=== PATIENT | female | born 1955 | race Caucasian/White ===

== ENCOUNTER → 2018-03-27 | Outpatient (CLI) | payer OTHER ==
[2018-03-27 15:28] VITALS: BP 141/66; PULSE 83; RESP 18; TEMP 97.2; BMI 22.3
--- NOTE | 2018-03-27 16:17 | P.HPOB ---
History of Present Illness H&P Date: 03/27/18 Chief Complaint: The patient is here for her routine gynecologic exam and mammogram. This is a 62-year-old G0 with an LMP of approximately 2003. The patient is here to establish with this office. She states that it has been about 5 years since her last pelvic exam. She is without gynecologic complaints and denies any postmenopausal bleeding. Review of Systems The patient's weight has been stable over the last year. She denies respiratory , cardiac, or G.I. problems. Past Medical History Past Medical History: Eye Disorder, Hyperlipidemia, Seizure Disorder Additional Past Medical History / Comment(s): EPILEPSY-LAST SEIZURE APPROX 30 YRS AGO, GLAUCOMA. History of Any Multi-Drug Resistant Organisms: None Reported Past Surgical History: Breast Surgery (Left breast biopsy) Additional Past Surgical History / Comment(s): COLONOSCOPY 2013 (2nd). Past Anesthesia/Blood Transfusion Reactions: Motion Sickness Additional Past Anesthesia/Blood Transfusion Reaction / Comment(s): HAS NEVER HAD GENERAL ANESTHESIA Past Psychological History: No Psychological Hx Reported Smoking Status: Never smoker Past Alcohol Use History: Rare (5 per year) Past Drug Use History: None Reported Additional History: She is single and has never been sexually active. 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 - Past Family History Mother Family Medical History: Hypertension, Myocardial Infarction ([place]) Additional Family Medical History / Comment(s): Kasey had breast cancer. Father Additional Family Medical History / Comment(s): Hepatitis C Medications and Allergies Home Medications Medication Instructions Recorded Confirmed Type Atorvastatin [Lipitor] 20 mg PO HS 03/24/14 03/26/14 History Fresh Coat Drops 1 drop BOTH EYES TID 03/24/14 03/26/14 History carBAMazepine [TEGretol] 100 mg PO DAILY 03/24/14 03/26/14 History levETIRAcetam [Keppra] 750 mg PO Q12HR 03/27/18 03/27/18 History Allergies Allergy/AdvReac Type Severity Reaction Status Date / Time No Known Allergies Allergy Verified 03/24/14 09:12 Exam Vital Signs Temp Pulse Resp BP 03/27/18 15:10 97.2 F L 83 18 141/66 Intake and Output 03/27/18 03/27/18 03/27/18 06:59 14:59 22:59 Other: Weight 55.338 kg Height 5'2", BMI 22.3. This is a well-developed well-nourished white female who is alert and oriented times 3 in no acute distress. HEENT: Within normal limits. NECK: Supple without mass or thyromegaly. CHEST AND LUNGS: Clear to auscultation. HEART: Regular rate and rhythm. BREASTS: Are without mass or discharge. AXILLARY EXAM: Negative for adenopathy. BACK: Negative for CVA tenderness. ABDOMEN: Soft, nontender, without palpable masses. PELVIC EXAM: Normal external genitalia with mild to moderate atrophy. The introitus is virginal. Cervix and vagina appear normal with mild to moderate atrophy. There is no unusual discharge. There is no evidence of prolapse. The uterus is midposition, nongravid size and nontender. There are no palpable adnexal masses or tenderness. RECTAL EXAM: rectovaginal exam is negative for mass or tenderness and is negative for occult blood. EXTREMITIES: Nontender. IMPRESSION: 1. 62-year-old menopausal virginal female with normal gynecologic exam. 2. Mildly elevated blood pressure. 3. History of osteopenia per the patient. PLAN: 1. Pap smear was performed. 2. Self breast awareness was discussed. 3. Screening mammogram will be done today. 4. Osteoporosis prevention was discussed. I have recommended repeating bone density testing since it has probably been more than 3 years since her last one. She will ask her primary care physician if one was done more recent than 3 years. 5. I have recommended that she check her own blood pressure on a regular basis and follow-up with Dr. Brar for blood pressure elevations. 6. She will return in one year.
--- NOTE | 2018-03-29 14:30 | MM ---
Reason for exam: screening (asymptomatic). History: Patient is postmenopausal and is nulliparous. MG Screening Mammo w CAD Bilateral CC and MLO view(s) were taken. The breast tissue is heterogeneously dense. This may lower the sensitivity of mammography. Focal asymmetry right anterior MLO new. Finding is new when compared to prior images 02/06/17 and . ASSESSMENT: Incomplete: need additional imaging evaluation, BI-RAD 0 RECOMMENDATION: Special view mammogram of the right breast.
== END | disposition home or self-care (01) ==
LOC: WWCWWP 14:36
PROVIDERS: ATTEND Obstetrics & Gynecology
DX: Z12.31 Encounter for screening mammogram for malignant neoplasm of breast (principal)
CPT/HCPCS: 77067

== ENCOUNTER 2023-12-01 09:54 | Observation (INO) | payer BC, OTHER ==
[2023-12-01 10:33] LABS: HCT 43.6 % (34.0-46.0); HGB 14.2 gm/dL (11.4-16.0); MCH 31.2 pg (25.0-35.0); MCHC 32.6 g/dL (31.0-37.0); MCV 95.7 fL (80.0-100.0); Mean Platelet Volume 7.8; Platelet Count 166 k/uL (150-450); RBC 4.56 m/uL (3.80-5.40); RDW 12.1 % (11.5-15.5)
[2023-12-01] MEDS: SODIUM CHLORIDE 0.9% 500 ML 500 ML IV STA (10:34)
[2023-12-01] MEDS: DILTIAZEM DRIP BOLUS FROM BAG 1 MG SOLN IV ONE (10:39)
[2023-12-01] MEDS: DILTIAZEM 125 MG in SODIUM CHLORIDE 0.9% 100 ML IV SCH (10:42)
--- NOTE | 2023-12-01 10:42 | XR ---
EXAMINATION TYPE: XR chest 2V DATE OF EXAM: 12/01/2023 10:35 AM CLINICAL INDICATION:Female, 68 years old with history of dysrhythmia; PHH COMPARISON: None TECHNIQUE: XR chest 2V Frontal and lateral views of the chest. FINDINGS: Lungs/Pleura: There is no evidence of pleural effusion, focal consolidation, or pneumothorax. Pulmonary vascularity: Unremarkable. Heart/mediastinum: Cardiomediastinal silhouette is unremarkable. Musculoskeletal: No acute osseous pathology. IMPRESSION: No acute cardiopulmonary disease/process.
[2023-12-01 10:49] LABS: ALT 26 U/L (4-34); AST 32 U/L (14-36); African American GFR (CKD) >90 (>60 ml/min/1.73 sqM); Albumin 3.9 g/dL (3.5-5.0); Alkaline Phosphatase 81 U/L (38-126); Anion Gap 8 mmol/L; Blood Urea Nitrogen 16 mg/dL (7-17); Calcium 8.3 mg/dL (8.4-10.2); Carbon Dioxide 23 mmol/L (22-30); Chloride 105 mmol/L (98-107); Glucose 91 mg/dL (74-99); Non-African American GFR(CKD) >90 (>60 ml/min/1.73 sqM); Potassium 3.7 mmol/L (3.5-5.1); Sodium 136 mmol/L (137-145); Total Bilirubin 0.4 mg/dL (0.2-1.3); Total Protein 6.6 g/dL (6.3-8.2)
--- NOTE | 2023-12-01 10:52 | ED ---
General Adult HPI - General Chief complaint: Arrhythmia/Palpitations Stated complaint: Afib Time Seen by Provider: 12/01/23 10:04 Source: patient, EMS, RN notes reviewed, old records reviewed Mode of arrival: EMS Limitations: no limitations - History of Present Illness Initial comments: 68-year-old female presenting from primary care office with new onset atrial fibrillation with RVR. Patient has no prior history. She has no chest pain. She has mild exertional dyspnea. She states she had a low-grade fever, headache, diarrhea earlier this week. Those symptoms have improved. She feels fine at the time my evaluation. She was noted to have a rapid A-fib in the 1 50-1 70 range during transport. - Related Data Home Medications Medication Instructions Recorded Confirmed Atorvastatin [Lipitor] 20 mg PO HS 03/24/14 12/01/23 carBAMazepine [TEGretol] 200 mg PO TID 03/24/14 12/01/23 Latanoprost [Latanoprost 0.005%] 1 drop LEFT EYE HS 12/01/23 12/01/23 Multivitamins, Thera [Multivitamin 1 tab PO DAILY 12/01/23 12/01/23 (formulary)] levETIRAcetam [Keppra] 250 mg PO Q12HR 12/01/23 12/01/23 levETIRAcetam [Keppra] 500 mg PO Q12HR 12/01/23 12/01/23 Allergies Allergy/AdvReac Type Severity Reaction Status Date / Time No Known Allergies Allergy Verified 12/01/23 11:25 Review of Systems ROS Statement: Those systems with pertinent positive or pertinent negative responses have been documented in the HPI. ROS Other: All systems not noted in ROS Statement are negative. Past Medical History Past Medical History: Eye Disorder, Hyperlipidemia, Seizure Disorder Additional Past Medical History / Comment(s): EPILEPSY-LAST SEIZURE APPROX 30 YRS AGO, GLAUCOMA. History of Any Multi-Drug Resistant Organisms: None Reported Past Surgical History: Breast Surgery Additional Past Surgical History / Comment(s): COLONOSCOPY 2014 (2nd). Past Anesthesia/Blood Transfusion Reactions: Motion Sickness Additional Past Anesthesia/Blood Transfusion Reaction / Comment(s): HAS NEVER HAD GENERAL ANESTHESIA Past Psychological History: No Psychological Hx Reported Smoking Status: Never smoker Past Alcohol Use History: Rare Past Drug Use History: None Reported - Past Family History Mother Family Medical History: Hypertension, Myocardial Infarction ([place]) Additional Family Medical History / Comment(s): Kasey had breast cancer. Father Family Medical History: No Reported History Additional Family Medical History / Comment(s): Hepatitis C General Exam Limitations: no limitations General appearance: alert, in no apparent distress Head exam: Present: atraumatic, normocephalic Eye exam: Present: normal appearance, PERRL ENT exam: Present: normal exam Neck exam: Present: normal inspection. Absent: tenderness, meningismus Respiratory exam: Present: normal lung sounds bilaterally. Absent: respiratory distress, wheezes Cardiovascular Exam: Present: tachycardia, irregular rhythm GI/Abdominal exam: Present: soft. Absent: distended, tenderness, guarding Neurological exam: Present: alert, oriented X3, CN II-XII intact. Absent: motor sensory deficit Psychiatric exam: Present: normal affect, normal mood Skin exam: Present: warm, dry, intact. Absent: cyanosis, diaphoretic Course Vital Signs 12/01/23 12/01/23 12/01/23 10:00 10:01 10:08 Temperature 97.0 F L Pulse Rate 163 H 156 H Pulse Rate [ 156 H Order Entry Administrator ] Respiratory 18 18 Rate Blood Pressure 123/93 123/93 O2 Sat by Pulse 100 96 Oximetry 12/01/23 12/01/23 12/01/23 11:00 12:00 12:51 Temperature Pulse Rate 156 H 102 H Pulse Rate [ 97 Order Entry Administrator ] Respiratory 18 18 Rate Blood Pressure 107/63 129/71 O2 Sat by Pulse 100 100 Oximetry Medical Decision Making - Medical Decision Making Was pt. sent in by a medical professional or institution (, PA, M[employer], urgent care, hospital, or correction...) When possible be specific @ -No Did you speak to anyone other than the patient for history (EMS, parent, family, police, friend...)? What history was obtained from this source @ -No Did you review nursing and triage notes (agree or disagree)? Why? @ -I reviewed and agree with nursing and triage notes Were old charts reviewed (outside hosp., previous admission, EMS record, old EKG, old radiological studies, urgent care reports/EKG's, correction records)? Report findings @ -No old charts were reviewed Differential Diagnosis MDM differential palpitation EKG interpreted by me (3pts min.). @EKG atrial fibrillation with RVR rate of 147 QRS duration 79, QTc [address] segment elevation, ST segment depression in the lateral precordial leads. Repeat EKG at 1249, sinus rhythm rate of 95, AK interval 123, QRS duration 82, QTc [address] segment changes. X-rays interpreted by me (1pt min.). @Negative for acute cardiopulmonary findings. CT interpreted by me (1pt min.). @ -None done U/S interpreted by me (1pt. min.). @ -None done What testing was considered but not performed or refused? (CT, X-rays, U/S, labs)? Why? @ -None What meds were considered but not given or refused? Why? @ -None Did you discuss the management of the patient with other professionals (professionals i.e. , PA, M[employer]ER, lab, RT, psych nurse, social insurance specialist, support manager, teacher, amphibious operations officer, clinical case manager)? Give summary @ -[EMH Was smoking cessation discussed for >3mins.? @ -No Was critical care preformed (if so, how long)? @ -yes 35 min Were there social determinants of health that impacted care today? How? (Homeles sness, low income, unemployed, alcoholism, drug addiction, transportation, low edu. Level, literacy, decrease access to med. care, nursing home, rehab)? @ -No Was there de-escalation of care discussed even if they declined (Discuss DNR or withdrawal of care, Hospice)? DNR status @ -No What co-morbidities impacted this encounter? (DM, HTN, Smoking, COPD, CAD, Cancer, CVA, ARF, Chemo, Hep., AIDS, mental health diagnosis, sleep apnea, morbid obesity)? @ -None Was patient admitted / discharged? Hospital course, mention meds given and route, prescriptions, significant lab abnormalities, going to OR and other pertinent info. @ 68-year-old female with new onset A-fib with RVR. Normal labs. Started on C ardiezem and Heparin. Patient admitted with new onset atrial fibrillation with RVR. Chest x-ray is clear. Laboratory testing unremarkable with the exception of testing positive for coronavirus. Patient admitted to internal medicine with cardiology on consult. Undiagnosed new problem with uncertain prognosis? @ -No Drug Therapy requiring intensive monitoring for toxicity (Heparin, Nitro, Insul in, Cardizem)? @ -No Were any procedures done? @ -No Diagnosis/symptom? @ -New onset A-fib Acute, or Chronic, or Acute on Chronic? @ acute Uncomplicated (without systemic symptoms) or Complicated (systemic symptoms)? @ -Default Side effects of treatment? @ -No Exacerbation, Progression, or Severe Exacerbation? @ -No Poses a threat to life or bodily function? How? (Chest pain, USA, MS, pneumonia, PE, COPD, DKA, ARF, appy, cholecystitis, CVA, Diverticulitis, Homicidal, Suicidal, threat to staff... and all critical care pts) @ -Yes, arrhythmia - Lab Data Result diagrams: 12/01/23 10:10 12/01/23 10:10 Lab Results 12/01/23 12/01/23 12/01/23 Range/Units 10:10 10:10 10:10 WBC 4.0 (3.8-10.6) k/uL RBC 4.56 (3.80-5.40) m/uL Hgb 14.2 (11.4-16.0) gm/dL Hct 43.6 (34.0-46.0) % MCV 95.7 (80.0-100.0) fL MCH 31.2 (25.0-35.0) pg MCHC 32.6 (31.0-37.0) g/dL RDW 12.1 (11.5-15.5) % Plt Count 166 (150-450) k/uL MPV 7.8 Neutrophils % (Manual) 58 % Band Neuts % (Manual) 1 % Lymphocytes % (Manual) 26 % Monocytes % (Manual) 12 % Eosinophils % (Manual) 2 % Basophils % (Manual) 1 % Neutrophils # (Manual) 2.30 (1.3-7.7) k/uL Lymphocytes # (Manual) 1.04 (1.0-4.8) k/uL Monocytes # (Manual) 0.48 (0-1.0) k/uL Eosinophils # (Manual) 0.08 (0-0.7) k/uL Basophils # (Manual) 0.04 (0-0.2) k/uL Nucleated RBCs 0 (0-0) /100 WBC Manual Slide Review Performed PT 11.0 (10.0-12.5) sec INR 1.0 (<1.2) APTT 23.9 (22.0-30.0) sec Sodium 136 L (137-145) mmol/L Potassium 3.7 (3.5-5.1) mmol/L Chloride 105 (98-107) mmol/L Carbon Dioxide 23 (22-30) mmol/L Anion Gap 8 mmol/L BUN 16 (7-17) mg/dL Creatinine 0.50 L (0.52-1.04) mg/dL Est GFR (CKD-EPI)AfAm >90 (>60 ml/min/1.73 sqM) Est GFR (CKD-EPI)NonAf >90 (>60 ml/min/1.73 sqM) Glucose 91 (74-99) mg/dL Calcium 8.3 L (8.4-10.2) mg/dL Magnesium 2.0 (1.6-2.3) mg/dL Total Bilirubin 0.4 (0.2-1.3) mg/dL AST 32 (14-36) U/L ALT 26 (4-34) U/L Alkaline Phosphatase 81 (38-126) U/L Troponin I (0.000-0.034) ng/mL Total Protein 6.6 (6.3-8.2) g/dL Albumin 3.9 (3.5-5.0) g/dL TSH 1.370 (0.465-4.680) mIU/L Influenza Type A (PCR) (Not Detectd) Influenza Type B (PCR) (Not Detectd) RSV (PCR) (Not Detectd) SARS-CoV-2 (PCR) (Not Detectd) 12/01/23 12/01/23 Range/Units 10:10 10:10 WBC (3.8-10.6) k/uL RBC (3.80-5.40) m/uL Hgb (11.4-16.0) gm/dL Hct (34.0-46.0) % MCV (80.0-100.0) fL MCH (25.0-35.0) pg MCHC (31.0-37.0) g/dL RDW (11.5-15.5) % Plt Count (150-450) k/uL MPV Neutrophils % (Manual) % Band Neuts % (Manual) % Lymphocytes % (Manual) % Monocytes % (Manual) % Eosinophils % (Manual) % Basophils % (Manual) % Neutrophils # (Manual) (1.3-7.7) k/uL Lymphocytes # (Manual) (1.0-4.8) k/uL Monocytes # (Manual) (0-1.0) k/uL Eosinophils # (Manual) (0-0.7) k/uL Basophils # (Manual) (0-0.2) k/uL Nucleated RBCs (0-0) /100 WBC Manual Slide Review PT (10.0-12.5) sec INR (<1.2) APTT (22.0-30.0) sec Sodium (137-145) mmol/L Potassium (3.5-5.1) mmol/L Chloride (98-107) mmol/L Carbon Dioxide (22-30) mmol/L Anion Gap mmol/L BUN (7-17) mg/dL Creatinine (0.52-1.04) mg/dL Est GFR (CKD-EPI)AfAm (>60 ml/min/1.73 sqM) Est GFR (CKD-EPI)NonAf (>60 ml/min/1.73 sqM) Glucose (74-99) mg/dL Calcium (8.4-10.2) mg/dL Magnesium (1.6-2.3) mg/dL Total Bilirubin (0.2-1.3) mg/dL AST (14-36) U/L ALT (4-34) U/L Alkaline Phosphatase (38-126) U/L Troponin I <0.012 (0.000-0.034) ng/mL Total Protein (6.3-8.2) g/dL Albumin (3.5-5.0) g/dL TSH (0.465-4.680) mIU/L Influenza Type A (PCR) Not Detected (Not Detectd) Influenza Type B (PCR) Not Detected (Not Detectd) RSV (PCR) Not Detected (Not Detectd) SARS-CoV-2 (PCR) Detected A (Not Detectd) Critical Care Time Critical Care Time: Yes Total Critical Care Time: 35 Disposition Clinical Impression: Atrial fibrillation, COVID-19 Disposition: ADMITTED IP TO THIS [facility] Condition: Stable Is patient prescribed a controlled substance at d/c from ED?: No Time of Disposition: 12:37
[2023-12-01 10:53] LABS: Partial Thromboplastin Time 23.9 sec (22.0-30.0)
[2023-12-01] MEDS ORDERED: HEPARIN SODIUM 1,000 UN/ML (10ML VL) IV PRN (11:32)
[2023-12-01 11:41] LABS: Band Neutrophils % 1 %; Basophils # (M) 0.04 k/uL (0-0.2); Eosinophils # (M) 0.08 k/uL (0-0.7); Lymphocytes # (M) 1.04 k/uL (1.0-4.8); Monocytes # (M) 0.48 k/uL (0-1.0); Neutrophils % (M) 58 %; Nucleated Red Blood Cells 0 /100 WBC (0-0); Total Cells Counted 100
[2023-12-01] MEDS: HEPARIN SOD,PORK IN 0.45% NACL 25,000 UNIT in 0.45% NACL 1 250ML.BAG IV SCH (12:09)
[2023-12-01] MEDS: HEPARIN SODIUM 1,000 UN/ML (10ML VL) IV ONE (12:10)
[2023-12-01] MEDS ORDERED: NALOXONE 0.4 MG/ML 1 ML VIAL IV PRN (12:29)
[2023-12-01] MEDS ORDERED: ACETAMINOPHEN TAB 325 MG TAB PO PRN (12:29)
[2023-12-01] MEDS ORDERED: ONDANSETRON 4 MG/2 ML VIAL IVP PRN (15:22)
[2023-12-01] MEDS ORDERED: traMADol 50 MG TAB PO PRN (15:22)
--- NOTE | 2023-12-01 15:28 | P.HPIM ---
History of Present Illness H&P Date: 12/01/23 Chief Complaint: shortness of breath * 68-year-old lady with past medical history significant for hyperlipidemia, seizure disorder,presented to the emergency department with complains of new onset atrial fibrillation, patient initially presented with shortness of breath. Patient also had low-grade fever headache and had diarrhea for a few days. * workup initiated in ER included an EKG which showed atrial fibrillation heart rate of 156. Patient remained on room air * blood work obtained in ER included normal CBC including WBC hemoglobin and platelet count. INR of 1 * Serum chemistry showed sodium 136 fashion 3.7B UN 16 creatinine 0.5 magnesium of 2 * Patient was tested negative for influenza, positive for Covid REVIEW OF SYSTEMS: fever, headache, diarrhea CONSTITUTIONAL: No fever, no malaise, no fatigue. HEENT: No recent visual problems or hearing problems. Denied any sore throat. CARDIOVASCULAR: No chest pain, orthopnea, PND, no palpitations, no syncope. PULMONARY: No shortness of breath, no cough, no hemoptysis. GASTROINTESTINAL: fever, headache, diarrhea NEUROLOGICAL: No headaches, no weakness, no numbness. HEMATOLOGICAL: Denies any bleeding or petechiae. GENITOURINARY: Denies any burning micturition, frequency, or urgency. MUSCULOSKELETAL/RHEUMATOLOGICAL: Denies any joint pain, swelling, or any muscle pain. ENDOCRINE: Denies any polyuria or polydipsia. PHYSICAL EXAMINATION: GENERAL: The patient is alert and oriented x3, not in any acute distress. Well developed, well nourished. HEENT: Pupils are round and equally reacting to light. EOMI Normocephalic, atraumatic. No pharyngeal erythema. No thyromegaly. CARDIOVASCULAR: S1 and S2 present.tachycardia noted irregular rhythm PULMONARY: Chest is clear to auscultation, no wheezing or crackles. ABDOMEN: Soft, nontender, nondistended, normoactive bowel sounds. No palpable organomegaly. MUSCULOSKELETAL: No joint swelling or deformity. EXTREMITIES: No cyanosis, clubbing, or pedal edema. NEUROLOGICAL: Gross neurological examination did not reveal any focal deficits. Assessment and plan * New onset atrial fibrillation with rapid monitor is on * Diagnosis of Covid 19 incidental finding patient is on room air * Seizure disorder * Acute hyponatremia * Hyperlipidemia * In regards to atrial fibrillation, patient started on IV heparin, patient started on Cardizem drip, cardiology consulted, TSH is reviewed * in regards to incidental finding of Covid 19 continue to monitor for desaturation * In regards to seizure disorder continue home regimen including Keppra and Tegretol * In regards to hyponatremia follow-up on basic metabolic panel * In regards to dyslipidemia continue Lipitor * CODE STATUS full code Past Medical History Past Medical History: Eye Disorder, Hyperlipidemia, Seizure Disorder Additional Past Medical History / Comment(s): EPILEPSY-LAST SEIZURE APPROX 30 YRS AGO, GLAUCOMA. History of Any Multi-Drug Resistant Organisms: None Reported Past Surgical History: Breast Surgery Additional Past Surgical History / Comment(s): COLONOSCOPY 2013 (2nd). Past Anesthesia/Blood Transfusion Reactions: Motion Sickness Additional Past Anesthesia/Blood Transfusion Reaction / Comment(s): HAS NEVER HAD GENERAL ANESTHESIA Past Psychological History: No Psychological Hx Reported Smoking Status: Never smoker Past Alcohol Use History: Rare Past Drug Use History: None Reported - Past Family History Mother Family Medical History: Hypertension, Myocardial Infarction ([place]) Additional Family Medical History / Comment(s): Kasey had breast cancer. Father Family Medical History: No Reported History Additional Family Medical History / Comment(s): Hepatitis C Medications and Allergies Home Medications Medication Instructions Recorded Confirmed Type Atorvastatin [Lipitor] 20 mg PO HS 03/24/14 12/01/23 History carBAMazepine [TEGretol] 200 mg PO TID 03/24/14 12/01/23 History Latanoprost [Latanoprost 0.005%] 1 drop LEFT EYE HS 12/01/23 12/01/23 History Multivitamins, Thera [Multivitamin 1 tab PO DAILY 12/01/23 12/01/23 History (formulary)] levETIRAcetam [Keppra] 250 mg PO Q12HR 12/01/23 12/01/23 History levETIRAcetam [Keppra] 500 mg PO Q12HR 12/01/23 12/01/23 History Allergies Allergy/AdvReac Type Severity Reaction Status Date / Time No Known Allergies Allergy Verified 12/01/23 11:25 Physical Exam Vitals: Vital Signs Temp Pulse Pulse Resp BP Pulse Ox 12/01/23 12:51 97 12/01/23 12:00 102 H 18 129/71 100 12/01/23 11:00 156 H 18 107/63 100 12/01/23 10:08 156 H 12/01/23 10:01 97.0 F L 156 H 18 123/93 96 12/01/23 10:00 163 H 18 123/93 100 Intake and Output 12/01/23 12/01/23 12/01/23 06:59 14:59 22:59 Intake Total 13.0 Balance 13.0 Intake: Intake, IV Titration 13.0 Amount Diltiazem 125 mg In 13.0 Sodium Chloride 0.9% 100 ml @ 5 MG/HR 5 mls/hr IV .Q24H [facility] Rx#:[id number] Other: Weight 53.977 kg Results CBC & Chem 7: 12/01/23 10:10 12/01/23 10:10 Labs: Abnormal Lab Results - Last 24 Hours (Table) 12/01/23 12/01/23 Range/Units 10:10 10:10 Sodium 136 L (137-145) mmol/L Creatinine 0.50 L (0.52-1.04) mg/dL Calcium 8.3 L (8.4-10.2) mg/dL SARS-CoV-2 (PCR) Detected A (Not Detectd)
[2023-12-01] MEDS: MULTIVITAMINS, THERA 1 EACH TAB PO SCH (15:48)
[2023-12-01] MEDS: SODIUM CHLORIDE 0.9% 1,000 ML IV SCH (15:50)
[2023-12-01] MEDS: carBAMazepine 200 MG TAB PO SCH (15:53)
[2023-12-01] MEDS: levETIRAcetam 500 MG TAB PO SCH (23:02)
[2023-12-01] MEDS: ATORVASTATIN 20 MG TAB PO SCH (23:02)
[2023-12-01] MEDS: LATANOPROST 0.005% OPHTH DROPS 2.5 ML BTL LEFT EYE SCH (23:02)
[2023-12-02] MEDS: levETIRAcetam 250 MG TAB PO SCH (00:13)
[2023-12-02 06:51] LABS: INR 1.4 (<1.2); Prothrombin Time 14.4 sec (10.0-12.5)
[2023-12-02 07:05] LABS: Basophils % (A) 1 %; Eosinophils # (A) 0.1 k/uL (0-0.7); Eosinophils % (A) 4 %; HCT 38.3 % (34.0-46.0); HGB 12.5 gm/dL (11.4-16.0); Lymphocytes # (A) 1.1 k/uL (1.0-4.8); Lymphocytes % (A) 35 %; MCH 31.3 pg (25.0-35.0); MCHC 32.7 g/dL (31.0-37.0); MCV 95.7 fL (80.0-100.0); Mean Platelet Volume 8.1; Monocytes # (A) 0.4 k/uL (0-1.0); Monocytes % (A) 12 %; Neutrophils # (A) 1.4 k/uL (1.3-7.7); Neutrophils % (A) 44 %; Platelet Count 161 k/uL (150-450); RDW 12.3 % (11.5-15.5); WBC 3.2 k/uL (3.8-10.6)
[2023-12-02 07:50] LABS: African American GFR (CKD) >90 (>60 ml/min/1.73 sqM); Anion Gap 6 mmol/L; Blood Urea Nitrogen 12 mg/dL (7-17); C Reactive Protein 1.5 mg/dL (<1.0); Calcium 7.6 mg/dL (8.4-10.2); Carbon Dioxide 21 mmol/L (22-30); Chloride 112 mmol/L (98-107); Glucose 87 mg/dL (74-99); Magnesium 1.8 mg/dL (1.6-2.3); Non-African American GFR(CKD) >90 (>60 ml/min/1.73 sqM); Potassium 3.7 mmol/L (3.5-5.1); Sodium 139 mmol/L (137-145)
[2023-12-02] MEDS ORDERED: Potassium Replacement Protocol 1 EACH MISC MISCELLANE PRN (09:40)
[2023-12-02] MEDS: METOPROLOL SUCCINATE (ER) 25 MG TAB.ER.24H PO SCH (10:35)
[2023-12-02] MEDS: POTASSIUM CHLORIDE 10 MEQ in WATER FOR INJECTION 1 100ML.BAG IVPB SCH (10:36)
--- NOTE | 2023-12-02 11:25 | P.CRDCN ---
History of Present Illness Consult date: 12/02/23 Chief complaint: Palpitations/heart racing History of present illness: All the patient is a 68-year-old female patient with a past medical history significant for dyslipidemia and history of seizure with no documented history of coronary artery disease or congestive heart failure or cardiac arrhythmia was admitted to the hospital with COVID-19 infection and also atrial fibrillation. She was seen by her primary care physician not feeling well experiencing symptoms of abdominal discomfort as well as some gastrointestinal symptoms. She was noted to be tachycardic which she was sent to the emergency department and she was found to be in atrial fibrillation with RVR subsequently she was started on Cardizem IV and converted to normal sinus mechanism. Beside that she is on metoprolol. She has been maintaining normal sinus mechanism since she was in the hospital. No history of atrial fibrillation. No history of stroke. No history of smoking. She underwent further workup including an EKG and that showed atrial fibrillation with diffuse nonspecific ST or T wave wave abnormalities and also she underwent chest x-ray did not show any acute abnormalities. The blood work came in to be positive for COVID-19 infection. Beside that the rest of the blood work came in to be overall unremarkable. She underwent TSH came in to be unremarkable. The first set of troponin came in to be unremarkable. The examination revealed regular rhythm with clear breathing sounds bilaterally and no edema was noted in the lower extremities Assessment COVID-19 infection Atrial fibrillation with RVR which is new. The patient currently is in sinus mechanism History of seizure Dyslipidemia Plan Thyroid dysfunction was ruled out Rule out acute coronary event and follow-up with the serial cardiac enzymes Obtain an echocardiogram with Doppler Continue heparin IV at this point Continue the current medical regimen including the current dose of metoprolol and increase the dose DC Cardizem IV Further recommendation regarding the oral anticoagulation treatment Follow-up with the patient Past Medical History Past Medical History: Eye Disorder, Hyperlipidemia, Seizure Disorder Additional Past Medical History / Comment(s): EPILEPSY-LAST SEIZURE APPROX 30 YRS AGO, GLAUCOMA. History of Any Multi-Drug Resistant Organisms: None Reported Past Surgical History: Breast Surgery Additional Past Surgical History / Comment(s): COLONOSCOPY 2014 (2nd). Past Anesthesia/Blood Transfusion Reactions: Motion Sickness Additional Past Anesthesia/Blood Transfusion Reaction / Comment(s): HAS NEVER HAD GENERAL ANESTHESIA Past Psychological History: No Psychological Hx Reported Smoking Status: Never smoker Past Alcohol Use History: Rare Past Drug Use History: None Reported - Past Family History Mother Family Medical History: Hypertension, Myocardial Infarction ([place]) Additional Family Medical History / Comment(s): Kasey had breast cancer. Father Family Medical History: No Reported History Additional Family Medical History / Comment(s): Hepatitis C Medications and Allergies Home Medications Medication Instructions Recorded Confirmed Type Atorvastatin [Lipitor] 20 mg PO HS 03/24/14 12/01/23 History carBAMazepine [TEGretol] 200 mg PO TID 03/24/14 12/01/23 History Latanoprost [Latanoprost 0.005%] 1 drop LEFT EYE HS 12/01/23 12/01/23 History Multivitamins, Thera [Multivitamin 1 tab PO DAILY 12/01/23 12/01/23 History (formulary)] levETIRAcetam [Keppra] 250 mg PO Q12HR 12/01/23 12/01/23 History levETIRAcetam [Keppra] 500 mg PO Q12HR 12/01/23 12/01/23 History Allergies Allergy/AdvReac Type Severity Reaction Status Date / Time No Known Allergies Allergy Verified 12/01/23 11:25 Physical Exam Vitals: Vital Signs Temp Pulse Pulse Resp BP BP Pulse Ox 12/02/23 08:13 85 16 130/68 95 12/02/23 04:00 98.2 F 77 16 126/59 99 12/02/23 02:00 77 12/02/23 00:00 82 16 128/74 98 12/01/23 20:00 98.5 F 98 16 127/71 98 12/01/23 18:14 78 18 108/78 98 12/01/23 15:00 98 18 101/48 99 12/01/23 14:00 101 H 18 112/68 99 12/01/23 13:00 104 H 18 123/78 99 12/01/23 12:51 97 12/01/23 12:00 102 H 18 129/71 100 Intake and Output 12/01/23 12/02/23 12/02/23 22:59 06:59 14:59 Intake Total 78.264 172.947 Balance 78.264 172.947 Intake: Intake, IV Titration 78.264 54.947 Amount Heparin Sod,Pork in 0.45% 78.264 54.947 NaCl 25,000 unit In 0.45 % NaCl 1 250ml.bag @ 12 UNITS/KG/HR 6.477 mls/hr IV .Q24H [facility] Rx#: [id number] Oral 118 Other: # Voids 2 1 Weight 53.977 kg Results 12/02/23 06:20 12/02/23 06:20 Coagulation 12/01/23 12/01/23 12/02/23 Range/Units 17:30 22:04 06:20 PT 14.4 H (10.0-12.5) sec APTT >200.0 H* 24.0 (22.0-30.0) sec 12/02/23 Range/Units 06:20 PT (10.0-12.5) sec APTT 132.4 H* (22.0-30.0) sec CBC 12/02/23 Range/Units 06:20 WBC 3.2 L (3.8-10.6) k/uL RBC 4.00 (3.80-5.40) m/uL Hgb 12.5 (11.4-16.0) gm/dL Hct 38.3 (34.0-46.0) % Plt Count 161 (150-450) k/uL Comprehensive Metabolic Panel 12/02/23 Range/Units 06:20 Sodium 139 (137-145) mmol/L Potassium 3.7 (3.5-5.1) mmol/L Chloride 112 H (98-107) mmol/L Carbon Dioxide 21 L (22-30) mmol/L BUN 12 (7-17) mg/dL Creatinine 0.42 L (0.52-1.04) mg/dL Glucose 87 (74-99) mg/dL Calcium 7.6 L (8.4-10.2) mg/dL Current Medications Generic Name Dose Route Start Last Admin Trade Name Freq PRN Reason Stop Dose Admin Acetaminophen 650 mg 12/01/23 12:29 Acetaminophen Tab 325 Mg Tab PO Q6HR PRN Mild Pain or Fever > 100.5 Atorvastatin Calcium 20 mg 12/01/23 21:00 12/01/23 23:02 Atorvastatin 20 Mg Tab PO 20 mg HS [facility] Administration Carbamazepine 200 mg 12/01/23 16:00 12/02/23 08:20 Carbamazepine 200 Mg Tab PO 200 mg TID [facility] Administration Heparin Sodium (Porcine) 0 unit 12/01/23 11:32 Heparin Sodium 1,000 Un/Ml (10ml Vl) IV PER PROTOCOL PRN Low PTT Protocol Heparin Sodium/Sodium Chloride 250 mls @ 6.477 mls/hr 12/01/23 11:45 12/02/23 10:25 25,000 unit/ Sodium Chloride IV 9 units/kg/hr .Q24H [facility] 4.858 mls/hr Titration Protocol 12 UNITS/KG/HR Sodium Chloride 1,000 mls @ 20 mls/hr 12/01/23 15:30 12/01/23 15:50 Saline 0.9% IV 20 mls/hr .Q24H [facility] Administration Potassium Chloride 10 meq/ IV 100 mls @ 100 mls/hr 12/02/23 09:45 12/02/23 10:36 Solution IVPB 12/02/23 11:44 100 mls/hr Q1H [facility] Administration Protocol Latanoprost 1 drops 12/01/23 21:00 12/01/23 23:02 Latanoprost 0.005% Ophth Drops 2.5 Ml Btl LEFT EYE 1 drops HS [facility] Administration Levetiracetam 250 mg 12/01/23 21:00 12/02/23 08:20 Levetiracetam 250 Mg Tab PO 250 mg Q12HR [facility] Administration Levetiracetam 500 mg 12/01/23 21:00 12/02/23 08:20 Levetiracetam 500 Mg Tab PO 500 mg Q12HR [facility] Administration Metoprolol Succinate 25 mg 12/02/23 09:45 12/02/23 10:35 Metoprolol Succinate (Er) 25 Mg Tab.Er.24h PO 25 mg DAILY [facility] Administration Miscellaneous Information 1 each 12/02/23 09:40 Potassium Replacement Protocol 1 Each Misc MISCELLANE DAILY PRN Per Protocol Protocol Multivitamins 1 each 12/01/23 15:30 12/02/23 08:20 Multivitamins, Thera 1 Each Tab PO 1 each DAILY [facility] Administration Naloxone HCl 0.2 mg 12/01/23 12:29 Naloxone 0.4 Mg/Ml 1 Ml Vial IV Q2M PRN Opioid Reversal Ondansetron HCl 4 mg 12/01/23 15:22 Ondansetron 4 Mg/2 Ml Vial IVP Q8HR PRN Nausea And Vomiting Tramadol HCl 50 mg 12/01/23 15:22 Tramadol 50 Mg Tab PO Q6H PRN Moderate Pain (Scale 4 to 6) Intake and Output 12/01/23 12/02/23 12/02/23 22:59 06:59 14:59 Intake Total 78.264 172.947 Balance 78.264 172.947 Intake: Intake, IV Titration 78.264 54.947 Amount Heparin Sod,Pork in 0.45% 78.264 54.947 NaCl 25,000 unit In 0.45 % NaCl 1 250ml.bag @ 12 UNITS/KG/HR 6.477 mls/hr IV .Q24H [facility] Rx#: [id number] Oral 118 Other: # Voids 2 1 Weight 53.977 kg 12/02/23 06:20 12/02/23 06:20
[2023-12-02] MEDS: METOPROLOL SUCCINATE (ER) 25 MG TAB.ER.24H PO STA (12:33)
--- NOTE | 2023-12-02 13:10 | P.PN ---
Subjective Progress Note Date: 12/02/23 * 68-year-old lady with past medical history significant for hyperlipidemia, seizure disorder,presented to the emergency department with complains of new onset atrial fibrillation, patient initially presented with shortness of breath. Patient also had low-grade fever headache and had diarrhea for a few days. * workup initiated in ER included an EKG which showed atrial fibrillation heart rate of 156. Patient remained on room air * blood work obtained in ER included normal CBC including WBC hemoglobin and platelet count. INR of 1 * Serum chemistry showed sodium 136 fashion 3.7B UN 16 creatinine 0.5 magnesium of 2 * Patient was tested negative for influenza, positive for Covid * 12/02/23 : patient seen and evaluated bedside,blood work reviewed, WBC 3.2, INR 1.4, sodium 139, magnesium 1.8, potassium 3.7 lipase. Patient on Cardizem drip to be weaned off as tolerated REVIEW OF SYSTEMS: fever, headache, diarrhea RESOLVED CONSTITUTIONAL: No fever, no malaise, no fatigue. HEENT: No recent visual problems or hearing problems. Denied any sore throat. CARDIOVASCULAR: No chest pain, orthopnea, PND, no palpitations, no syncope. PULMONARY: No shortness of breath, no cough, no hemoptysis. GASTROINTESTINAL: fever, headache, diarrhea RESOLVED NEUROLOGICAL: No headaches, no weakness, no numbness. HEMATOLOGICAL: Denies any bleeding or petechiae. GENITOURINARY: Denies any burning micturition, frequency, or urgency. MUSCULOSKELETAL/RHEUMATOLOGICAL: Denies any joint pain, swelling, or any muscle pain. ENDOCRINE: Denies any polyuria or polydipsia. PHYSICAL EXAMINATION: GENERAL: The patient is alert and oriented x3, not in any acute distress. Well developed, well nourished. HEENT: Pupils are round and equally reacting to light. EOMI Normocephalic, atraumatic. No pharyngeal erythema. No thyromegaly. CARDIOVASCULAR: S1 and S2 present.tachycardia noted irregular rhythm PULMONARY: Chest is clear to auscultation, no wheezing or crackles. ABDOMEN: Soft, nontender, nondistended, normoactive bowel sounds. No palpable organomegaly. MUSCULOSKELETAL: No joint swelling or deformity. EXTREMITIES: No cyanosis, clubbing, or pedal edema. NEUROLOGICAL: Gross neurological examination did not reveal any focal deficits. Assessment and plan * New onset atrial fibrillation with rapid monitor is on * Diagnosis of Covid 19 incidental finding patient is on room air * Seizure disorder * Acute hyponatremia * Hyperlipidemia * In regards to atrial fibrillation, patient started on IV heparin, patient started on Cardizem drip WEAN off as tolerated, started on metoprolol, cardiology consulted, TSH is reviewedwithin normal limits * in regards to incidental finding of Covid 19 continue to monitor for desaturation, CRP minimally elevated * In regards to seizure disorder continue home regimen including Keppra and Tegretol * In regards to hyponatremia follow-up on basic metabolic panel * In regards to dyslipidemia continue Lipitor * CODE STATUS full code Objective - Vital Signs Vital signs: Vital Signs Temp 98.2 F 12/02/23 04:00 Pulse 85 12/02/23 08:13 Resp 16 12/02/23 08:13 BP 130/68 12/02/23 08:13 Pulse Ox 95 12/02/23 08:13 FiO2 Intake & Output 12/01/23 12/02/23 12/02/23 18:59 06:59 18:59 Intake Total 13.0 78.264 54.947 Balance 13.0 78.264 54.947 Weight 53.977 kg Intake: Intake, IV Titration 13.0 78.264 54.947 Amount Diltiazem 125 mg In 13.0 Sodium Chloride 0.9% 100 ml @ 5 MG/HR 5 mls/hr IV .Q24H [facility] Rx#:[id number] Heparin Sod,Pork in 0.45% 78.264 54.947 NaCl 25,000 unit In 0.45 % NaCl 1 250ml.bag @ 12 UNITS/KG/HR 6.477 mls/hr IV .Q24H [facility] Rx#: [id number] Other: # Voids 2 - Labs CBC & Chem 7: 12/02/23 06:20 12/02/23 06:20 Labs: Abnormal Lab Results - Last 24 Hours (Table) 12/01/23 12/01/23 12/01/23 Range/Units 10:10 10:10 17:30 WBC (3.8-10.6) k/uL PT (10.0-12.5) sec INR (<1.2) APTT >200.0 H* (22.0-30.0) sec Sodium 136 L (137-145) mmol/L Chloride (98-107) mmol/L Carbon Dioxide (22-30) mmol/L Creatinine 0.50 L (0.52-1.04) mg/dL Calcium 8.3 L (8.4-10.2) mg/dL C-Reactive Protein (<1.0) mg/dL SARS-CoV-2 (PCR) Detected A (Not Detectd) 12/02/23 12/02/23 12/02/23 Range/Units 06:20 06:20 06:20 WBC 3.2 L (3.8-10.6) k/uL PT 14.4 H (10.0-12.5) sec INR 1.4 H (<1.2) APTT (22.0-30.0) sec Sodium (137-145) mmol/L Chloride 112 H (98-107) mmol/L Carbon Dioxide 21 L (22-30) mmol/L Creatinine 0.42 L (0.52-1.04) mg/dL Calcium 7.6 L (8.4-10.2) mg/dL C-Reactive Protein 1.5 H (<1.0) mg/dL SARS-CoV-2 (PCR) (Not Detectd) 12/02/23 Range/Units 06:20 WBC (3.8-10.6) k/uL PT (10.0-12.5) sec INR (<1.2) APTT 132.4 H* (22.0-30.0) sec Sodium (137-145) mmol/L Chloride (98-107) mmol/L Carbon Dioxide (22-30) mmol/L Creatinine (0.52-1.04) mg/dL Calcium (8.4-10.2) mg/dL C-Reactive Protein (<1.0) mg/dL SARS-CoV-2 (PCR) (Not Detectd)
[2023-12-03 08:07] LABS: HGB 13.3 gm/dL (11.4-16.0); MCH 31.2 pg (25.0-35.0); MCHC 32.6 g/dL (31.0-37.0); MCV 95.9 fL (80.0-100.0); Mean Platelet Volume 8.4; Platelet Count 158 k/uL (150-450); RBC 4.28 m/uL (3.80-5.40); RDW 12.2 % (11.5-15.5); WBC 3.2 k/uL (3.8-10.6)
[2023-12-03 08:22] LABS: African American GFR (CKD) >90 (>60 ml/min/1.73 sqM); Anion Gap 5 mmol/L; Blood Urea Nitrogen 13 mg/dL (7-17); Calcium 8.4 mg/dL (8.4-10.2); Carbon Dioxide 24 mmol/L (22-30); Chloride 107 mmol/L (98-107); Glucose 92 mg/dL (74-99); Non-African American GFR(CKD) >90 (>60 ml/min/1.73 sqM); Potassium 4.3 mmol/L (3.5-5.1); Sodium 136 mmol/L (137-145)
[2023-12-03] MEDS: METOPROLOL SUCCINATE (ER) 50 MG TAB.ER.24H PO SCH (08:22)
--- NOTE | 2023-12-03 11:44 | P.PN ---
Subjective Progress Note Date: 12/03/23 * 68-year-old lady with past medical history significant for hyperlipidemia, seizure disorder,presented to the emergency department with complains of new onset atrial fibrillation, patient initially presented with shortness of breath. Patient also had low-grade fever headache and had diarrhea for a few days. * workup initiated in ER included an EKG which showed atrial fibrillation heart rate of 156. Patient remained on room air * blood work obtained in ER included normal CBC including WBC hemoglobin and platelet count. INR of 1 * Serum chemistry showed sodium 136 fashion 3.7B UN 16 creatinine 0.5 magnesium of 2 * Patient was tested negative for influenza, positive for Covid * 12/02/23 : patient seen and evaluated bedside,blood work reviewed, WBC 3.2, INR 1.4, sodium 139, magnesium 1.8, potassium 3.7 lipase. Patient on Cardizem drip to be weaned off as tolerated * 12/03/23: Patient seen and evaluated bedside, plan to wean off Cardizem drip and placed on metoprolol. Dose of metoprolol increased. Heart rate better currently. Continue on IV heparin will need cost inquiry for Eliquis. From COVID standpoint. CBC reviewed, basic metabolic panel reviewed patient remains asymptomatic on room air REVIEW OF SYSTEMS: fever, headache, diarrhea RESOLVED CONSTITUTIONAL: No fever, no malaise, no fatigue. HEENT: No recent visual problems or hearing problems. Denied any sore throat. CARDIOVASCULAR: No chest pain, orthopnea, PND, no palpitations, no syncope. PULMONARY: No shortness of breath, no cough, no hemoptysis. GASTROINTESTINAL: fever, headache, diarrhea RESOLVED NEUROLOGICAL: No headaches, no weakness, no numbness. HEMATOLOGICAL: Denies any bleeding or petechiae. GENITOURINARY: Denies any burning micturition, frequency, or urgency. MUSCULOSKELETAL/RHEUMATOLOGICAL: Denies any joint pain, swelling, or any muscle pain. ENDOCRINE: Denies any polyuria or polydipsia. PHYSICAL EXAMINATION: GENERAL: The patient is alert and oriented x3, not in any acute distress. Well developed, well nourished. HEENT: Pupils are round and equally reacting to light. EOMI Normocephalic, a traumatic. No pharyngeal erythema. No thyromegaly. CARDIOVASCULAR: S1 and S2 present.tachycardia noted but improved irregular rhythm PULMONARY: Chest is clear to auscultation, no wheezing or crackles. ABDOMEN: Soft, nontender, nondistended, normoactive bowel sounds. No palpable organomegaly. MUSCULOSKELETAL: No joint swelling or deformity. EXTREMITIES: No cyanosis, clubbing, or pedal edema. NEUROLOGICAL: Gross neurological examination did not reveal any focal deficits. Assessment and plan * New onset atrial fibrillation with rapid monitor is on * Diagnosis of Covid 19 incidental finding patient is on room air * Seizure disorder * Acute hyponatremia * Hyperlipidemia * In regards to atrial fibrillation, patient started on IV heparin, patient was started on Cardizem drip WEANed off on 12/03/23 , started on metoprolol(was increased), cardiology consulted, TSH is reviewedwithin normal limits, echocardiogram ordered pending * in regards to incidental finding of Covid 19 continue to monitor for desaturation, CRP minimally elevated * In regards to seizure disorder continue home regimen including Keppra and Tegretol * In regards to hyponatremia follow-up on basic metabolic panel * In regards to dyslipidemia continue Lipitor * CODE STATUS full code Objective - Vital Signs Vital signs: Vital Signs Temp 97.1 F L 12/03/23 08:17 Pulse 99 12/03/23 08:17 Resp 18 12/03/23 08:17 BP 106/55 12/03/23 08:17 Pulse Ox 99 12/03/23 08:17 FiO2 Intake & Output 12/02/23 12/03/23 12/03/23 18:59 06:59 18:59 Intake Total 441.819 53.111 Balance 441.819 53.111 Intake: Intake, IV Titration 87.819 53.111 Amount Heparin Sod,Pork in 0.45% 87.819 53.111 NaCl 25,000 unit In 0.45 % NaCl 1 250ml.bag @ 12 UNITS/KG/HR 6.477 mls/hr IV .Q24H [facility] Rx#: [id number] Oral 354 Other: Voiding Method Toilet # Voids 3 1 # Bowel Movements 1 1 - Labs CBC & Chem 7: 12/03/23 07:32 12/03/23 07:32 Labs: Abnormal Lab Results - Last 24 Hours (Table) 12/02/23 12/03/23 12/03/23 Range/Units 23:24 07:32 07:32 WBC 3.2 L (3.8-10.6) k/uL APTT 34.0 H (22.0-30.0) sec Sodium 136 L (137-145) mmol/L Creatinine 0.43 L (0.52-1.04) mg/dL 12/03/23 Range/Units 07:32 WBC (3.8-10.6) k/uL APTT 36.0 H (22.0-30.0) sec Sodium (137-145) mmol/L Creatinine (0.52-1.04) mg/dL
--- NOTE | 2023-12-03 11:51 | P.PN ---
Subjective Progress Note Date: 12/03/23 Principal diagnosis: Paroxysmal atrial fibrillation The patient is a 68-year-old female patient with a past medical history significant for dyslipidemia and history of seizure with no documented history of coronary artery disease or congestive heart failure or cardiac arrhythmia was admitted to the hospital with COVID-19 infection and also atrial fibrillation. She was seen by her primary care physician not feeling well experiencing symptoms of abdominal discomfort as well as some gastrointestinal symptoms. She was noted to be tachycardic which she was sent to the emergency department and she was found to be in atrial fibrillation with RVR subsequently she was started on Cardizem IV and converted to normal sinus mechanism. Beside that she is on metoprolol. She has been maintaining normal sinus mechanism since she was in the hospital. No history of atrial fibrillation. No history of stroke. No history of smoking. She underwent further workup including an EKG and that showed atrial fibrillation with diffuse nonspecific ST or T wave wave abnormalities and also she underwent chest x-ray did not show any acute abnormalities. The blood work came in to be positive for COVID-19 infection. Beside that the rest of the blood work came in to be overall unremarkable. She underwent TSH came in to be unremarkable. The first set of troponin came in to be unremarkable. The examination revealed regular rhythm with clear breathing sounds bilaterally and no edema was noted in the lower extremities December 03, 2023 The patient was seen and evaluated this morning. She has been maintaining normal sinus mechanism. Currently she is on heparin IV which I am going to stop and start the patient on oral anticoagulation. The echo still pending. She reports no pain in the chest and no shortness of breath and no dizziness or lightheadedness and no feeling of heart racing or fluttering. She was ruled out for acute coronary syndrome. The examination revealed regular rhythm with clear breathing sounds bilaterally and no edema was noted. Assessment COVID-19 infection Atrial fibrillation with RVR which is new. The patient currently is in sinus mechanism History of seizure Dyslipidemia Plan Thyroid dysfunction was ruled out Acute coronary syndrome was ruled out Obtain an echocardiogram with Doppler DC heparin and start the patient on oral anticoagulation The patient potentially can be discharged home pending echo result Objective - Vital Signs Vital signs: Vital Signs Temp 97.1 F L 12/03/23 08:17 Pulse 99 12/03/23 08:17 Resp 18 12/03/23 08:17 BP 106/55 12/03/23 08:17 Pulse Ox 99 12/03/23 08:17 FiO2 Intake & Output 12/02/23 12/03/23 12/03/23 18:59 06:59 18:59 Intake Total 441.819 83.917 120 Balance 441.819 83.917 120 Intake: Intake, IV Titration 87.819 83.917 Amount Heparin Sod,Pork in 0.45% 87.819 83.917 NaCl 25,000 unit In 0.45 % NaCl 1 250ml.bag @ 12 UNITS/KG/HR 6.477 mls/hr IV .Q24H [facility] Rx#: [id number] Oral 354 120 Other: Voiding Method Toilet # Voids 3 1 # Bowel Movements 1 1 - Labs CBC & Chem 7: 12/03/23 07:32 12/03/23 07:32 Labs: Abnormal Lab Results - Last 24 Hours (Table) 12/02/23 12/03/23 12/03/23 Range/Units 23:24 07:32 07:32 WBC 3.2 L (3.8-10.6) k/uL APTT 34.0 H (22.0-30.0) sec Sodium 136 L (137-145) mmol/L Creatinine 0.43 L (0.52-1.04) mg/dL 12/03/23 Range/Units 07:32 WBC (3.8-10.6) k/uL APTT 36.0 H (22.0-30.0) sec Sodium (137-145) mmol/L Creatinine (0.52-1.04) mg/dL
[2023-12-03] MEDS: APIXABAN 5 MG TAB PO SCH (11:55)
--- NOTE | 2023-12-03 11:55 | P.DS ---
Providers Date of admission: 12/01/23 12:29 Expected date of discharge: 12/03/23 Attending physician: Garcia Luna Consults: 12/01/23 12:29 Consult Physician Routine Consulting Provider: Chandana Fisher Consult Reason/Comments: a Fibrillation with RVR Do you want consulting provider notified?: Yes Primary care physician: [facility] Course: 68-year-old lady with past medical history significant for hyperlipidemia, seizure disorder,presented to the emergency department with complains of new onset atrial fibrillation, patient initially presented with shortness of breath. Patient also had low-grade fever headache and had diarrhea for a few days. * workup initiated in ER included an EKG which showed atrial fibrillation heart rate of 156. Patient remained on room air * blood work obtained in ER included normal CBC including WBC hemoglobin and platelet count. INR of 1 * Serum chemistry showed sodium 136 fashion 3.7B UN 16 creatinine 0.5 magnesium of 2 * Patient was tested negative for influenza, positive for Covid * 12/02/23 : patient seen and evaluated bedside,blood work reviewed, WBC 3.2, INR 1.4, sodium 139, magnesium 1.8, potassium 3.7 lipase. Patient on Cardizem drip to be weaned off as tolerated * 12/03/23: Patient seen and evaluated bedside, plan to wean off Cardizem drip and placed on metoprolol. Dose of metoprolol increased. Heart rate better currently. Continue on IV heparin will need cost inquiry for Eliquis. From COVID standpoint. CBC reviewed, basic metabolic panel reviewed patient remains asymptomatic on room air. Echocardiogram completed. Patient discharged on metoprolol and Eliquis REVIEW OF SYSTEMS: fever, headache, diarrhea RESOLVED CONSTITUTIONAL: No fever, no malaise, no fatigue. HEENT: No recent visual problems or hearing problems. Denied any sore throat. CARDIOVASCULAR: No chest pain, orthopnea, PND, no palpitations, no syncope. PULMONARY: No shortness of breath, no cough, no hemoptysis. GASTROINTESTINAL: fever, headache, diarrhea RESOLVED NEUROLOGICAL: No headaches, no weakness, no numbness. HEMATOLOGICAL: Denies any bleeding or petechiae. GENITOURINARY: Denies any burning micturition, frequency, or urgency. MUSCULOSKELETAL/RHEUMATOLOGICAL: Denies any joint pain, swelling, or any muscle pain. ENDOCRINE: Denies any polyuria or polydipsia. PHYSICAL EXAMINATION: GENERAL: The patient is alert and oriented x3, not in any acute distress. Well developed, well nourished. HEENT: Pupils are round and equally reacting to light. EOMI Normocephalic, atraumatic. No pharyngeal erythema. No thyromegaly. CARDIOVASCULAR: S1 and S2 present.tachycardia noted but improved irregular rhyth m PULMONARY: Chest is clear to auscultation, no wheezing or crackles. ABDOMEN: Soft, nontender, nondistended, normoactive bowel sounds. No palpable organomegaly. MUSCULOSKELETAL: No joint swelling or deformity. EXTREMITIES: No cyanosis, clubbing, or pedal edema. NEUROLOGICAL: Gross neurological examination did not reveal any focal deficits. Assessment and plan * New onset atrial fibrillation with rapid monitor is on * Diagnosis of Covid 19 incidental finding patient is on room air * Seizure disorder * Acute hyponatremia * Hyperlipidemia * In regards to atrial fibrillation, patient started on IV heparin, patient was started on Cardizem drip WEANed off on 12/03/23 , started on metoprolol(was increased), cardiology consulted, TSH is reviewedwithin normal limits, echocardiogram completed by cardiology . * in regards to incidental finding of Covid 19 continue to monitor for desaturation, CRP minimally elevated * In regards to seizure disorder continue home regimen including Keppra and Tegretol * In regards to hyponatremia follow-up on basic metabolic panel * In regards to dyslipidemia continue Lipitor Patient Condition at Discharge: Stable Plan - Discharge Summary New Discharge Prescriptions: New Metoprolol Succinate (ER) [Toprol XL] 50 mg PO DAILY 60 Days #60 tab Apixaban [Eliquis] 5 mg PO BID 30 Days #60 tab Continue Atorvastatin [Lipitor] 20 mg PO HS carBAMazepine [TEGretol] 200 mg PO TID Multivitamins, Thera [Multivitamin (formulary)] 1 tab PO DAILY Latanoprost [Latanoprost 0.005%] 1 drop LEFT EYE HS levETIRAcetam [Keppra] 500 mg PO Q12HR levETIRAcetam [Keppra] 250 mg PO Q12HR Discharge Medication List Atorvastatin [Lipitor] 20 mg PO HS 03/24/14 [History] carBAMazepine [TEGretol] 200 mg PO TID 03/24/14 [History] Latanoprost [Latanoprost 0.005%] 1 drop LEFT EYE HS 12/01/23 [History] Multivitamins, Thera [Multivitamin (formulary)] 1 tab PO DAILY 12/01/23 [History] levETIRAcetam [Keppra] 250 mg PO Q12HR 12/01/23 [History] levETIRAcetam [Keppra] 500 mg PO Q12HR 12/01/23 [History] Apixaban [Eliquis] 5 mg PO BID 30 Days #60 tab 12/03/23 [Rx] Metoprolol Succinate (ER) [Toprol XL] 50 mg PO DAILY 60 Days #60 tab 12/03/23 [Rx] Follow up Appointment(s)/Referral(s): Chandana Fisher MD [STAFF PHYSICIAN] - 1 Week Alexis Sandra MD [STAFF PHYSICIAN] - 1-2 days Discharge Disposition: HOME SELF-CARE
--- NOTE | 2023-12-03 15:55 | CA ---
Transthoracic Echo Report Name: Marisol Magallon Age: 68 Gender: F : 1955 Exam Date: 12/03/2023 11:00 Exam Location: [facility] Ht (in): 62 Wt (lb): 119 Ordering Physician: Chandana Fisher MD ([id number]) Attending/Referring Phys: Roll Operator Helen Campbell RDCS Procedure CPT: Indications: a-fib Cardiac Hx: Technical Quality: Good Contrast 1: Total Dose (mL): Contrast 2: Total Dose (mL): MEASUREMENTS (Male / Female) Normal Values 2D ECHO LV Diastolic Diameter PLAX 3.4 cm 4.2 - 5.9 / 3.9 - 5.3 cm LV Systolic Diameter PLAX 2.5 cm IVS Diastolic Thickness 0.9 cm 0.6 - 1.0 / 0.6 - 0.9 cm LVPW Diastolic Thickness 0.9 cm 0.6 - 1.0 / 0.6 - 0.9 cm LV Relative Wall Thickness 0.5 RV Internal Dim ED PLAX 2.5 cm LA Systolic Diameter LX 3.0 cm 3.0 - 4.0 / 2.7 - 3.8 cm LV Diastolic Volume MOD 4C 55.6 cm??? LV Systolic Volume MOD 4C 28.1 cm??? LV Ejection Fraction MOD 4C 49.5 % LV Cardiac Index MOD 4C 1557.1 cm???/min???m??? LV Diastolic Length 4C 6.5 cm LV Systolic Length 4C 5.5 cm LV Diastolic Volume MOD 2C 65.0 cm??? LV Systolic Volume MOD 2C 33.6 cm??? LV Ejection Fraction MOD 2C 48.4 % LV Cardiac Index MOD 2C 1777.4 cm???/min???m??? LV Diastolic Length 2C 7.1 cm LV Systolic Length 2C 5.8 cm LA Volume 31.1 cm??? 18 - 58 / 22 - 52 cm??? LA Volume Index 20.2 cm???/m??? 16 - 28 cm???/m??? M-MODE Aortic Root Diameter MM 2.9 cm MV E Point Septal Separation 0.3 cm AV Cusp Separation MM 1.8 cm DOPPLER AV Peak Velocity 109.2 cm/s AV Peak Gradient 4.8 mmHg MV Area PHT 4.0 cm??? Mitral E Point Velocity 86.9 cm/s Mitral A Point Velocity 62.1 cm/s Mitral E to A Ratio 1.4 MV Deceleration Time 191.6 ms TR Peak Velocity 247.0 cm/s TR Peak Gradient 24.4 mmHg Right Ventricular Systolic Press 29.3 mmHg FINDINGS Left Ventricle Left ventricular ejection fraction is estimated at 50 %. Small left ventricular cavity. Left ventricular wall thickness normal. No obvious regional wall motion abnormalities. Right Ventricle Normal right ventricular size. Right ventricular systolic pressure within normal limits. Right Atrium Normal right atrial size. Left Atrium Normal left atrial size. Mitral Valve Structurally normal mitral valve. No mitral stenosis. No evidence for mitral valve prolapse. Mild mitral regurgitation. Aortic Valve Trileaflet aortic valve. No aortic valve stenosis or regurgitation. Tricuspid Valve Structurally normal tricuspid valve. Mild tricuspid regurgitation. Pulmonic Valve Structurally normal pulmonic valve. No pulmonic regurgitation. Pericardium No pericardial effusion. Aorta Normal size aortic root and proximal ascending aorta. CONCLUSIONS Low-normal LV systolic function with EF at 50% [id number] mitral regurgitation with a central jet Previewed by: Dr. Chandana Fisher MD (Electronically Signed) Final Date: 03 December 2023 15:55
[2023-12-03 19:29] LABS: INR 0.9 (<1.2); Prothrombin Time 10.3 sec (10.0-12.5)
[2023-12-04] MEDS ORDERED: HEPARIN SODIUM 1,000 UN/ML (10ML VL) IV PRN
[2023-12-04] MEDS: WARFARIN 5 MG TAB PO ONE ×2 (00:04→17:18)
[2023-12-04] MEDS: HEPARIN SOD,PORK IN 0.45% NACL 25,000 UNIT in 0.45% NACL 1 250ML.BAG IV SCH (00:05)
[2023-12-04 06:49] LABS: Basophils % (A) 1 %; Eosinophils # (A) 0.2 k/uL (0-0.7); Eosinophils % (A) 4 %; HCT 42.8 % (34.0-46.0); HGB 13.9 gm/dL (11.4-16.0); Lymphocytes # (A) 1.3 k/uL (1.0-4.8); Lymphocytes % (A) 36 %; MCH 31.5 pg (25.0-35.0); MCHC 32.6 g/dL (31.0-37.0); MCV 96.7 fL (80.0-100.0); Mean Platelet Volume 7.9; Monocytes # (A) 0.3 k/uL (0-1.0); Monocytes % (A) 8 %; Neutrophils # (A) 1.8 k/uL (1.3-7.7); Neutrophils % (A) 47 %; Platelet Count 194 k/uL (150-450); RBC 4.42 m/uL (3.80-5.40); WBC 3.7 k/uL (3.8-10.6)
[2023-12-04 06:59] LABS: INR 0.9 (<1.2); Prothrombin Time 10.4 sec (10.0-12.5)
[2023-12-04 07:17] LABS: African American GFR (CKD) >90 (>60 ml/min/1.73 sqM); Anion Gap 5 mmol/L; Blood Urea Nitrogen 16 mg/dL (7-17); Calcium 8.7 mg/dL (8.4-10.2); Carbon Dioxide 25 mmol/L (22-30); Chloride 105 mmol/L (98-107); Glucose 95 mg/dL (74-99); Non-African American GFR(CKD) >90 (>60 ml/min/1.73 sqM); Potassium 3.9 mmol/L (3.5-5.1); Sodium 135 mmol/L (137-145)
[2023-12-04] MEDS: BENZOCAINE/MENTHOL LOZENG 1 EACH LOZENGE MUCOUS MEM PRN (12:04)
--- NOTE | 2023-12-04 14:00 | P.PN ---
Subjective Progress Note Date: 12/04/23 Paroxysmal atrial fibrillation The patient is a 68-year-old female patient with a past medical history si gnificant for dyslipidemia and history of seizure with no documented history of coronary artery disease or congestive heart failure or cardiac arrhythmia was admitted to the hospital with COVID-19 infection and also atrial fibrillation. She was seen by her primary care physician not feeling well experiencing symptoms of abdominal discomfort as well as some gastrointestinal symptoms. She was noted to be tachycardic which she was sent to the emergency department and she was found to be in atrial fibrillation with RVR subsequently she was started on Cardizem IV and converted to normal sinus mechanism. Beside that she is on metoprolol. She has been maintaining normal sinus mechanism since she was in the hospital. No history of atrial fibrillation. No history of stroke. No history of smoking. She underwent further workup including an EKG and that showed atrial fibrillation with diffuse nonspecific ST or T wave wave abnormalities and also she underwent chest x-ray did not show any acute abnormalities. The blood work came in to be positive for COVID-19 infection. Beside that the rest of the blood work came in to be overall unremarkable. She underwent TSH came in to be unremarkable. The first set of troponin came in to be unremarkable. The examination revealed regular rhythm with clear breathing sounds bilaterally and no edema was noted in the lower extremities December 03, 2023 The patient was seen and evaluated this morning. She has been maintaining normal sinus mechanism. Currently she is on heparin IV which I am going to stop and start the patient on oral anticoagulation. The echo still pending. She reports no pain in the chest and no shortness of breath and no dizziness or lightheadedness and no feeling of heart racing or fluttering. She was ruled out for acute coronary syndrome. The examination revealed regular rhythm with clear breathing sounds bilaterally and no edema was noted. 12/03 Patient denies feeling any palpitations or heart racing. No chest pain. Patient is in a sinus rhythm. Blood pressure 113/58, heart rate 85, pulse ox 99% on room air. Sodium 135, potassium 3.9, BUN 16 creatinine 0.48. Patient remains in isolation for COVID-19. Patient is unable to go on NOAC at this time because there is an interaction with her antiepileptic medications. Patient is been started on Coumadin remains on heparin drip. Echocardiogram reveals EF of 50%. Mild to moderate mitral regurgitation with central jet. Physical Examination Gen: This is a 68-year-old female in no acute distress HEENT: Head is atraumatic, normocephalic. Pupils equal, round. Sclerae is anicteric. LUNGS: Clear to auscultation. No wheezes or rhonchi. No intercostal retractions. HEART: Regular rate and rhythm. No murmur. ABDOMEN: Soft. Bowel sounds are present. No masses. No tenderness. EXTREMITIES: No pedal edema. No calf tenderness. NEUROLOGICAL: Patient is awake, alert and oriented x3. Assessment COVID-19 infection Atrial fibrillation with RVR which is new. The patient currently is in sinus mechanism History of seizure Dyslipidemia Plan Patient may continue on heparin drip and Coumadin as there is an interaction with Eliquis and her antiepileptic medications Patient is agreeable to go on subcu Lovenox at home and follow-up in the office on for INR. Patient is cleared for discharge once the above is in place. Nurse practitioner note has been reviewed, I agree with documented findings and plan of care. Patient was seen and examined. Objective - Vital Signs Vital signs: Vital Signs Temp 97.7 F 12/04/23 07:55 Pulse 85 12/04/23 07:55 Resp 16 12/04/23 07:55 BP 113/58 12/04/23 07:55 Pulse Ox 98 12/04/23 08:41 FiO2 Intake & Output 12/03/23 12/04/23 12/04/23 18:59 06:59 18:59 Intake Total 370 10 168.521 Balance 370 10 168.521 Intake: IV 10 10 Invasive Line 3 10 10 Intake, IV Titration 50.521 Amount Heparin Sod,Pork in 0.45% 50.521 NaCl 25,000 unit In 0.45 % NaCl 1 250ml.bag @ 12 UNITS/KG/HR 6.477 mls/hr IV .Q24H SUZANNE Rx#: [id number] Oral 360 118 Other: Voiding Method Toilet Toilet # Voids 1 2 # Bowel Movements 1 - Labs CBC & Chem 7: 12/04/23 06:27 12/04/23 06:27 Labs: Abnormal Lab Results - Last 24 Hours (Table) 12/04/23 12/04/23 12/04/23 Range/Units 06:27 06:27 06:27 WBC 3.7 L (3.8-10.6) k/uL APTT 31.8 H (22.0-30.0) sec Sodium 135 L (137-145) mmol/L Creatinine 0.48 L (0.52-1.04) mg/dL
[2023-12-04 15:53] VITALS: BP 129/58; PULSE 86; RESP 17; TEMP 97.8
[2023-12-04] MEDS: ENOXAPARIN 80 MG/0.8 ML SYRINGE SQ SCH (16:25)
--- NOTE | 2023-12-06 15:19 | P.DS ---
Providers Date of admission: 12/01/23 12:29 Attending physician: Garcia Luna Consults: 12/01/23 12:29 Consult Physician Routine Consulting Provider: Chandana Fisher Consult Reason/Comments: a Fibrillation with RVR Do you want consulting provider notified?: Yes Primary care physician: Sree Brar [facility] Course: Final Diagnosis New onset atrial fibrillation with rapid ventricular rate now rate controlled Diagnosis of COVID-19 incidental finding patient is on room air Seizure disorder maintained on Tegretol and Keppra Acute hyponatremia resolved Hyperlipidemia Discharge Disposition Stable for discharge home. Patient is now in normal sinus rhythm. Because of the new onset atrial fibrillation patient was recommended for oral anticoagulation unfortunately she has medical interactions obtain her seizure medications with Eliquis and she will need to be discharged home warfarin. Patient was discharged on a Lovenox bridge to give 80 mg subcu daily for the next 7 days. On day 4 patient is given a prescription to have her INR drawn at the cardiology office. Once her INR is above 2 she may stop the Lovenox. Patient was discharged on a starting dose of warfarin 5 mg orally daily to be adjusted based on her INR level. Patient is also started on beta elayne. Patient to follow-up with her PCP Dr. Alexis Sandra in 1 to 2 days. Patient recommended to follow-up with her oracle software engineer Dr. Muhammad in 1 week. Hospital Course This is a 68-year-old female with medical history of hyperlipidemia, seizure disorder who comes into the emergency center with concern for palpitations as well as shortness of breath. Patient has also had a low grade fever headache and diarrhea for few days. Patient had an EKG in the ER which showed atrial fibrillation with a heart rate of 156. She did have an episode back in April at her pulmonology office where she was feeling some palpitations. Patient was found to be positive for COVID however she has been maintained on room air this is more of an incidental finding. Patient was admitted to the hospital they consult placed to cardiology she was started on a Cardizem drip as well as a heparin drip. Patient was then transition to metoprolol and her heart rate has improved. Patient was recommended for discharge on Eliquis however there was drug interaction noted and as above she will be discharged on a Lovenox bridge with a transition to warfarin. Echocardiogram was completed revealing EF of 50% with mild to moderate MR with a central jet. Patient is not having any further episodes of palpitations no dizziness no lightheadedness no nausea no vomiting or diarrhea. She is not having any chest discomfort or shortness of breath. Neurologically patient is alert x 3 with no focal deficits. Her lungs are clear S1-S2 auscultated abdomen is soft and nontender. Hemodynamically patient is stable for discharge. Please see medication reconciliation for a list of current medications. Thank you for allowing us to participate in the care of this patient. The impression and plan of care has been dictated by Khadijah Servin, Nurse Practitioner as directed. Dr. Tyrell MD I have performed a history and physical examination and medical decision making of this patient, discussed the same with the dictator, and agree with the dictators assessment and plan as written, documented as a scribe. Based on total visit time, I have performed more than 50% of this visit. Patient Condition at Discharge: Stable Plan - Discharge Summary New Discharge Prescriptions: New Metoprolol Succinate (ER) [Toprol XL] 50 mg PO DAILY 60 Days #60 tab Enoxaparin [Lovenox] 80 mg SQ DAILY #7 each Warfarin [Coumadin] 5 mg PO DAILY #30 tab Continue Atorvastatin [Lipitor] 20 mg PO HS carBAMazepine [TEGretol] 200 mg PO TID Multivitamins, Thera [Multivitamin (formulary)] 1 tab PO DAILY Latanoprost [Latanoprost 0.005%] 1 drop LEFT EYE HS levETIRAcetam [Keppra] 500 mg PO Q12HR levETIRAcetam [Keppra] 250 mg PO Q12HR Discharge Medication List Atorvastatin [Lipitor] 20 mg PO HS 03/24/14 [History] carBAMazepine [TEGretol] 200 mg PO TID 03/24/14 [History] Latanoprost [Latanoprost 0.005%] 1 drop LEFT EYE HS 12/01/23 [History] Multivitamins, Thera [Multivitamin (formulary)] 1 tab PO DAILY 12/01/23 [History] levETIRAcetam [Keppra] 250 mg PO Q12HR 12/01/23 [History] levETIRAcetam [Keppra] 500 mg PO Q12HR 12/01/23 [History] Metoprolol Succinate (ER) [Toprol XL] 50 mg PO DAILY 60 Days #60 tab 04/21/24 [Rx] Enoxaparin [Lovenox] 80 mg SQ DAILY #7 each 12/04/23 [Rx] Warfarin [Coumadin] 5 mg PO DAILY #30 tab 12/04/23 [Rx] Follow up Appointment(s)/Referral(s): Chandana Fisher MD [STAFF PHYSICIAN] - 1 Week (please call to schedule appt. ) Alexis Sandra MD [STAFF PHYSICIAN] - 1-2 days (please call to schedule appt. ) Ambulatory/Diagnostic Orders: Basic Metabolic Panel [LAB.AMB] Location: None Selected Complete Blood Count w/diff [LAB.AMB] Time Frame: 3 Days, Location: None Selected Prothrombin Time INR [LAB.AMB] Time Frame: 3 Days, Location: None Selected Patient Instructions/Handouts: A-fib (Atrial Fibrillation) (DC), COVID-19 (Coronavirus Disease 2019) (DC) Activity/Diet/Wound Care/Special Instructions: Follow up in the office on for INR Continue on warfarin 5 mg daily Continue with lovenox injection daily and can stop the lovenox once INR is greater than 2. Discharge/Stand Alone Forms: Who Do I Call?, Personal Information Director Discharge Disposition: HOME SELF-CARE
== END 2023-12-04 18:17 | disposition home or self-care (01) ==
LOC: EC 09:54 → 3SCARD 12:29
PROVIDERS: ADMIT Hospitalist; ATTEND Hospitalist
DX: I48.0 Paroxysmal atrial fibrillation (principal); U07.1 COVID-19; E78.5 Hyperlipidemia, unspecified; G40.909 Epilepsy, unspecified, not intractable, without status epilepticus; E87.1 Hypo-osmolality and hyponatremia; Z79.899 Other long term (current) drug therapy
CPT/HCPCS: 96361 ×3; 96365; 96366; 96372; 96375; 99291; 36415; 94760 ×2; 93306; 80053; 80048 ×3; 83735 ×2; 84443; 84484 ×2; 85025 ×3; 85027; 85610 ×4; 85730 ×4; 86140; 87636; 71046; G0378 ×4; J1650; J1644 ×4; J3480

== ENCOUNTER → 2023-12-07 | Outpatient (CLI) | payer BC ==
[2023-12-07 15:37] LABS: Basophils # (A) 0.05 X 10*3/uL (0.00-0.10); Basophils % (A) 0.8 %; Eosinophils # (A) 0.16 X 10*3/uL (0.04-0.35); Eosinophils % (A) 2.4 %; HCT 41.7 % (37.2-46.3); HGB 13.6 g/dL (12.0-15.0); Lymphocytes # (A) 1.27 X 10*3/uL (0.90-5.00); Lymphocytes % (A) 19.3 %; MCH 31.6 pg (27.0-32.0); MCHC 32.6 g/dL (32.0-37.0); Mean Platelet Volume 10.7 FL (9.5-12.2); Monocytes % (A) 15.2 %; NRBC Per 100 WBC 0 X 10*3/uL (0.00-0.01); Neutrophils # (A) 4.08 X 10*3/uL (1.80-7.70); Platelet Count 242 X 10*3/uL (140-440); WBC 6.58 X 10*3/uL (4.50-10.00)
[2023-12-07 16:13] LABS: BUN/Creat Ratio 19.67 Ratio (12.00-20.00); Blood Urea Nitrogen 11.8 mg/dL (9.0-27.0); Carbon Dioxide 24.2 mmol/L (21.6-31.8); Chloride 101 mmol/L (96-109); Glucose 90 mg/dL (70-110); Potassium 4.4 mmol/L (3.5-5.5); Sodium 137 mmol/L (135-145)
== END | disposition home or self-care (01) ==
LOC: LABWHC1 09:14
PROVIDERS: ATTEND Nurse Practitioner Family
DX: I48.91 Unspecified atrial fibrillation (principal); E87.1 Hypo-osmolality and hyponatremia; Z79.899 Other long term (current) drug therapy
CPT/HCPCS: 36415; 80048; 85025